=== PATIENT | male | born 1955 | race Caucasian/White ===

== ENCOUNTER 2022-12-27 05:34 | Observation (INO) | payer OTHER ==
[2022-12-27 06:14] LABS: Absolute Lymphocytes (CBC) 1.9 K/uL (0.7-4.9); Lymphocytes % 36.8 % (15.3-44.8); MCV 94.7 fL (80-100); MPV 6.7 fL (7.6-11.3); Platelets 334 thou/uL (152-406); RBC Red Blood Cell Count 4.43 M/uL (4.33-5.43)
[2022-12-27 06:16] LABS: Protime INR 0.94
[2022-12-27 06:35] LABS: Albumin 3.8 g/dL (3.4-5.0); Bilirubin Direct 0.2 mg/dL (0-0.2); Bilirubin Indirect, Calculated 0.3 mg/dL (0.2-0.8); Bilirubin Total 0.5 mg/dL (0.2-1.0); Magnesium 1.8 mg/dL (1.6-2.4); Potassium 3.8 mEq/L (3.5-5.1); Protein, Total 7.9 g/dL (6.4-8.2); Troponin High Sensitivity 7.3 pg/mL (<58.9)
[2022-12-27] MEDS ORDERED: MORPHINE 4 MG/ML SYR ONE (06:39)
[2022-12-27] MEDS ORDERED: ONDANSETRON 4 MG/2 ML VIAL ONE (06:39)
[2022-12-27] MEDS ORDERED: ASPIRIN 81 MG CHEWABLE TABLET ONE (06:39)
[2022-12-27] MEDS ORDERED: ENOXAPARIN 100 MG/ML SYR SQ ONE (06:40)
[2022-12-27 07:06] LABS: SARS-CoV-2 Antigen Rapid Res Negative (Negative)
--- NOTE | 2022-12-27 07:07 | ER ---
Nurse's Notes [facility] [place] Name: Albin Blood Age: 67 yrs Sex: Male : 1955 Arrival Date: 12/27/2022 Time: 05:34 Bed 4 Private MD: Diagnosis: Unstable angina Presentation: 12/27 05:45 Chief complaint: Patient states: UPPER CHEST PAIN SINCE 0130. Coronavirus screen: At bp this time, the client does not indicate any symptoms associated with coronavirus-19. Ebola Screen: No symptoms or risks identified at this time. Initial Sepsis Screen: Does the patient meet any 2 criteria? No. Patient's initial sepsis screen is negative. Does the patient have a suspected source of infection? No. Patient's initial sepsis screen is negative. Risk Assessment: Do you want to hurt yourself or someone else? Patient reports no desire to harm self or others. Onset of symptoms was December 27, 2022 at 01:30. 05:45 Method Of Arrival: Ambulatory bp 05:45 Acuity: TAIWO 3 bp Triage Assessment: 06:00 General: Appears in no apparent distress. uncomfortable, Behavior is calm, cooperative, bp appropriate for age. Pain: Complains of pain in chest. EENT: No deficits noted. Neuro: No deficits noted. Cardiovascular: Reports chest pain. Respiratory: No deficits noted. GI: No signs and/or symptoms were reported involving the gastrointestinal system. : No signs and/or symptoms were reported regarding the genitourinary system. Derm: No deficits noted. Musculoskeletal: No deficits noted. Historical: - Allergies: 06:00 No Known Allergies; bp - PMHx: 06:00 Anemia; GERD; bp - Immunization history:: Adult Immunizations up to date. - Social history:: Smoking status: Patient denies any tobacco usage or history of. - Family history:: not pertinent. Screenin:01 [facility] ED Fall Risk Assessment (Adult) History of falling in the last 3 months, bp including since admission No falls in past 3 months (0 pts). Abuse screen: Denies threats or abuse. Denies injuries from another. Nutritional screening: No deficits noted. Tuberculosis screening: No symptoms or risk factors identified. Assessment: 06:01 Reassessment: SEE TRIAGE NOTE. bp 06:54 Reassessment: Patient appears in no apparent distress at this time. Patient is alert, bp oriented x 3, equal unlabored respirations, skin warm/dry/pink. 07:15 General: Appears in no apparent distress. Behavior is calm, cooperative, appropriate bp for age. Pain: Pain does not radiate. Pain began suddenly. Neuro: No deficits noted. Cardiovascular: Reports chest pain. Respiratory: No deficits noted. GI: No deficits noted. : No deficits noted. EENT: No deficits noted. Derm: No deficits noted. Musculoskeletal: No deficits noted. 09:05 Reassessment: Attempted to call report, no answer at nurses station or receiving nurses bp phone. 09:19 Reassessment: Attempted to call report, ext [phone], [phone] and [phone], no answer. bp 09:45 Reassessment: attempted to call report to Marge, she is in a patients room and will bp call me back. Vital Signs: 05:45 BP 168 / 89; Pulse 57; Resp 16; Temp 98; Pulse Ox 98% ; Weight 117.93 kg; Height 5 ft. bp 11 in. ; 06:54 BP 132 / 97; Pulse 54; Resp 17; Pulse Ox 95% ; bp 07:57 BP 133 / 87; Pulse 49; Resp 16; Pulse Ox 99% ; bp 08:57 BP 144 / 81; Pulse 51; Resp 18; Pulse Ox 97% ; bp 05:45 Body Mass Index 36.26 (117.93 kg, 180.34 cm) bp ED Course: 05:36 Patient arrived in ED. mr 05:51 Scout Menon MD is Attending Physician. sp4 05:57 Duane Mcconnell, PRATIK is Primary Nurse. bp 05:58 Inserted saline lock: 20 gauge in right antecubital area, using aseptic technique. bp Blood collected. 06:00 Triage completed. bp 06:00 Arm band placed on. bp 06:01 Patient maintains SpO2 saturation greater than 95% on room air. bp 06:01 Patient has correct armband on for positive identification. Bed in low position. Call bp light in reach. Side rails up X2. Client placed on continuous cardiac and pulse oximetry monitoring. NIBP monitoring applied. 06:47 XRAY Chest (1 view) In Process Unspecified. EDMS 07:05 Albin Velazquez MD is Hospitalizing Provider. sp4 07:07 Hospitalizing Provider role handed off by Albin Velazquez MD sp4 07:07 Dragan Chung is Hospitalizing Provider. sp4 07:57 Patient admitted, IV remains in place. bp 10:21 No provider procedures requiring assistance completed. bp 10:21 Provided Education on: na. bp Administered Medications: 06:37 Drug: Aspirin PO Chewable Tablet 324 mg Route: PO; bp 06:37 Drug: morphine IVP or IV 4 mg Route: IVP; Infused Over: 4 mins; Site: right antecubital;bp 06:37 Drug: Ondansetron IVP 4 mg Route: IVP; Site: right antecubital; bp 06:37 Drug: Enoxaparin Sub-Q 1 mg/kg Route: Sub-Q; Site: left lower abdomen; bp Medication: 06:01 VIS not applicable for this client. bp Outcome: 07:06 Decision to Hospitalize by Provider. sp4 10:21 Admitted to Tele accompanied by tech, via wheelchair, room 430, with chart, Report bp called to PRATIK Bird 10:21 Condition: stable 10:21 Instructed on the need for admit. 10:28 Patient left the ED. ko1 Signatures: Dispatcher [employer] EDTN JarrodAstrid Brian RN RN bp Shivani Cook RN RN ko1 Scout Menon MD MD sp4
--- NOTE | 2022-12-27 07:07 | EDPHYS ---
Physician Documentation [facility] Name: Albin Blood Age: 67 yrs Sex: Male : 1955 Arrival Date: 12/27/2022 Time: 05:34 Bed 4 Private MD: ED Physician Scout Menon HPI: 12/27 05:51 This 67 yrs old Male presents to ER via Unassigned with complaints of Chest sp4 Pain. 06:08 67-year-old male presents with a cute onset of midsternal chest pain starting at 1:30 sp4 in the morning on awakening. Patient reports moderate midsternal chest pressure with radiation into the neck and into the left arm. Left arm heaviness as well. No previous similar problems. Patient denied any past medical history he reports he takes Tylenol only as needed. 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 In the last few weeks he denied pain on physical exertion. This morning he reported some shortness of breath denies syncope or dizziness. Drinks 5-6 beers a day. Historical: - Allergies: 06:00 No Known Allergies; bp - PMHx: 06:00 Anemia; GERD; bp - Immunization history:: Adult Immunizations up to date. - Social history:: Smoking status: Patient denies any tobacco usage or history of. - Family history:: not pertinent. ROS: 06:10 Constitutional: Negative for fever, chills, and weight loss, Cardiovascular: Positive sp4 chest pain, positive shortness of breath, negative palpitations 06:10 All other systems are negative. Exam: 06:10 Constitutional: This is a well developed, well nourished patient who is awake, alert, sp4 and in no acute distress. Head/Face: Normocephalic, atraumatic. Eyes: Pupils equal round and reactive to light, extra-ocular motions intact. Lids and lashes normal. Conjunctiva and sclera are not injected. Cornea within normal limits. Periorbital areas with no swelling, redness, or edema. ENT: Nares patent. No nasal discharge, no septal abnormalities noted. Tympanic membranes are normal and external auditory canals are clear. Oropharynx with no redness, swelling, or masses, exudates, or evidence of obstruction, uvula midline. Mucous membranes moist. Neck: Trachea midline, no thyromegaly or masses palpated, and no cervical lymphadenopathy. Supple, full range of motion without nuchal rigidity, or vertebral point tenderness. Chest/axilla: Normal chest wall appearance and motion. Nontender with no deformity. No lesions are appreciated. Cardiovascular: Regular rate and rhythm with a normal S1 and S2. No gallops, murmurs, or rubs. Normal PMI, no JVD. No pulse deficits. Respiratory: Lungs have equal breath sounds bilaterally, clear to auscultation and percussion. No rales, rhonchi or wheezes noted. No increased work of breathing, no retractions or nasal flaring. Abdomen/GI: Soft, non-tender, with normal bowel sounds. No distension or tympany. No guarding or rebound. No evidence of tenderness throughout. Back: No spinal tenderness. No costovertebral tenderness. Skin: Warm, dry with normal turgor. Normal color with no rashes, no lesions, and no evidence of cellulitis. MS/ Extremity: Pulses equal, no cyanosis. Neurovascular intact. Full, normal range of motion. Neuro: Awake and alert, GCS 15, oriented to person, place, time, and situation. Cranial nerves II-XII grossly intact. Motor strength 5/5 in all extremities. Sensory grossly intact. Psych: Awake, alert, with orientation to person, place and time. Behavior, mood, and affect are within normal limits 06:10 ECG was reviewed by the Attending Physician. EKG reveals sinus bradycardia at the rate of 55, EKG time 0 548, no ST elevation or depression, no ectopy. Vital Signs: 05:45 BP 168 / 89; Pulse 57; Resp 16; Temp 98; Pulse Ox 98% ; Weight 117.93 kg; Height 5 ft. bp 11 in. ; 06:54 BP 132 / 97; Pulse 54; Resp 17; Pulse Ox 95% ; bp 07:57 BP 133 / 87; Pulse 49; Resp 16; Pulse Ox 99% ; bp 08:57 BP 144 / 81; Pulse 51; Resp 18; Pulse Ox 97% ; bp 05:45 Body Mass Index 36.26 (117.93 kg, 180.34 cm) bp MDM: 05:51 Patient medically screened. sp4 06:11 HEART Score: History: Highly Suspicious (2), ECG: Normal (0), Age: > or = 65 years (2), sp4 Risk Factors: No Risk Factors Known (0), Troponin: < or = 1 x Normal Limit (0), Total Score = 2. The patient was given aspirin in the Emergency Department. Data reviewed: vital signs, nurses notes, old medical records, lab test result(s), EKG, radiologic studies, plain films. ED course: Patient likely warrants admission for rule out ACS. 07:04 ED course: Troponin is negative thus far. Patient was given Lovenox and aspirin. sp4 Patient at this time medically stable for admission for rule out ACS and cardiology consult. . 12/27 05:51 Order name: Basic Metabolic Panel; Complete Time: 06:57 sp4 12/27 05:51 Order name: CBC with Diff; Complete Time: 06:57 sp4 12/27 05:51 Order name: LFT's; Complete Time: 06:57 sp4 12/27 05:51 Order name: Magnesium; Complete Time: 06:57 sp4 12/27 05:51 Order name: NT PRO-BNP; Complete Time: 06:57 sp4 12/27 05:51 Order name: PT-INR; Complete Time: 06:57 sp4 12/27 05:51 Order name: Troponin HS; Complete Time: 06:57 sp4 12/27 06:09 Order name: SARS RAPID; Complete Time: 08:06 sp4 12/27 08:40 Order name: Magnesium EDWI 12/27 08:40 Order name: NT PRO-BNP EDWI 12/27 08:41 Order name: Phosphorus EDWI 12/27 08:41 Order name: T4 Free EDWI 12/27 08:41 Order name: Thyroid Stimulating Hormone EDWI 12/27 08:41 Order name: Urinalysis w/ reflexes EDWI 12/27 08:41 Order name: Basic Metabolic Panel EDWI 12/27 08:41 Order name: Basic Metabolic Panel EDWI 12/27 08:41 Order name: CBC with Automated Diff EDMS 12/27 08:41 Order name: CBC with Automated Diff EDWI 12/27 08:41 Order name: Lipid Profile EDWI 12/27 08:41 Order name: Lipid Profile EDWI 12/27 08:43 Order name: Hemoglobin A1c EDWI 12/27 08:43 Order name: Troponin High Sensitivity EDWI 12/27 08:43 Order name: Troponin High Sensitivity EDWI 12/27 08:43 Order name: Troponin High Sensitivity [facility] 12/27 05:51 Order name: XRAY Chest (1 view); Complete Time: 08:06 sp4 12/27 08:43 Order name: Echo with Doppler EDWI 12/27 05:51 Order name: EKG; Complete Time: 05:52 sp4 12/27 08:40 Order name: CONS Physician Consult EDWI 12/27 08:40 Order name: Heart Healthy; Complete Time: 08:48 EDWI 12/27 05:51 Order name: Cardiac monitoring; Complete Time: 05:53 sp4 12/27 05:51 Order name: EKG - Nurse/Tech; Complete Time: 05:53 sp4 12/27 05:51 Order name: IV Saline Lock; Complete Time: 05:58 sp4 12/27 05:51 Order name: Labs collected and sent; Complete Time: 05:58 sp4 12/27 05:51 Order name: O2 Per Protocol; Complete Time: 05:53 sp4 12/27 05:51 Order name: O2 Sat Monitoring; Complete Time: 05:53 sp4 EC:10 Rate is 55 beats/min. Rhythm is regular, Sinus bradycardia. QRS Preemption is Normal. GA sp4 interval is normal. QRS interval is normal. QT interval is normal. T waves are Normal. No ST changes noted. Clinical impression: No evidence of ischemia. Interpreted by me. Reviewed by me. Administered Medications: 06:37 Drug: Aspirin PO Chewable Tablet 324 mg Route: PO; bp 06:37 Drug: morphine IVP or IV 4 mg Route: IVP; Infused Over: 4 mins; Site: right antecubital;bp 06:37 Drug: Ondansetron IVP 4 mg Route: IVP; Site: right antecubital; bp 06:37 Drug: Enoxaparin Sub-Q 1 mg/kg Route: Sub-Q; Site: left lower abdomen; bp Disposition Summary: 12/27/22 07:06 Hospitalization Ordered Hospitalization Status: Observation sp4 Location: Telemetry/MedSurg (observation) sp4 Condition: Stable sp4 Problem: new sp4 Symptoms: have improved sp4 Bed/Room Type: Standard sp4 Provider: Dragan Chung(12/27/22 07:07) sp4 Room Assignment: 430(12/27/22 08:58) bd Diagnosis - Unstable angina sp4 Forms: - Medication Reconciliation Form sp4 - SBAR form sp4 - Leadership Thank You Letter sp4 Signatures: Dispatcher [employer] Lucila Devi Brian, RN RN bp Potepalov, Sergey, MD MD sp4 Corrections: (The following items were deleted from the chart) 07:07 07:06 Albin Velazquez sp4 sp4 08:58 07:06 sp4 rosanne
--- NOTE | 2022-12-27 07:36 | RAD REPORT ---
EXAM DESCRIPTION: RAD - Chest Single View - 12/27/2022 6:45 am CLINICAL HISTORY: CHEST PAIN COMPARISON: Chest Single View dated 05/16/2016 FINDINGS: Lines: None. Lungs: No evidence of edema or pneumonia. Pleural: No significant pleural effusions or pneumothorax. Cardiac: The heart size is within normal limits. Mediastinum: Within normal limits. Large hiatal hernia. Bones: No acute fractures. Other: None IMPRESSION: No acute cardiopulmonary disease. Large hiatal hernia.
[2022-12-27] MEDS ORDERED: ACETAMINOPHEN 325 MG TABLET PO PRN (08:36)
[2022-12-27] MEDS ORDERED: HYDROCODONE/APAP 5/325 MG TAB PO PRN (08:36)
[2022-12-27] MEDS ORDERED: ONDANSETRON 4 MG/2 ML VIAL IV PRN (08:38)
--- NOTE | 2022-12-27 08:53 | P.HP ---
Certification for Inpatient Patient admitted to: Observation With expected LOS: <2 Midnights Patient will require the following post-hospital care: None Practitioner: I am a practitioner with admitting privileges, knowledge of patient current condition, hospital course, and medical plan of care. Services: Services provided to patient in accordance with Admission requirements found in Title 42 Section 412.3 of the Code of Federal Regulations Patient History Date of Service: 12/27/22 Reason for admission: Chest pain History of Present Illness: Patient is a 67-year-old male with a past medical history significant for anemia, GERD, alcohol abuse who presents with complaint of midsternal chest pain onset this morning. Patient reported that chest pain woke him up from sleep. Patient rated pain as 8/10 in severity and described pain as tightness\pressure in quality. Patient indicated that chest pain radiates to his left upper arm and neck. Patient reported associated signs and symptoms of light headedness and shortness of breath. Patient denies any other signs and symptoms. Symptoms are aggravated or relieved by nothing. Patient decided to present to the hospital due to worsening symptoms. Allergies No Known Allergies Allergy (Unverified 05/16/16 02:50) Home Medications: NK [No Home Meds] 12/27/22 - Past Medical/Surgical History -: GERD -: Alcohol abuse -: Anemia Past Surgical History: Reviewed- Non-Contributory - Family History Family History: Reviewed- Non-Contributory - Social History Smoking Status: Never smoker Alcohol use: Yes CD- Drugs: No Caffeine use: Yes Place of Residence: Home Review of Systems General: Unremarkable Eyes: Unremarkable ENT: Unremarkable Respiratory: Shortness of Breath Cardiovascular: Chest Pain, Light Headedness Gastrointestinal: Unremarkable Genitourinary: Unremarkable Musculoskeletal: Unremarkable Integumentary: Unremarkable Neurological: Unremarkable Lymphatics: Unremarkable Physical Examination - Physical Exam General: Alert, In no apparent distress, Oriented x3, Cooperative HEENT: Atraumatic, PERRLA, Mucous membr. moist/pink, EOMI, Sclerae nonicteric Neck: Supple, 2+ carotid pulse no bruit, No LAD, Without JVD or thyroid abnormality Respiratory: Clear to auscultation bilaterally, Normal air movement Cardiovascular: No edema, Regular rate/rhythm, Normal S1 S2 Capillary refill: <2 Seconds Gastrointestinal: Normal bowel sounds, Soft and benign, No tenderness Musculoskeletal: No clubbing, No tenderness Integumentary: No rashes Neurological: Normal gait, Normal speech, Normal strength at 5/5 x4 extr, Normal tone, Normal affect Lymphatics: No axilla or inguinal lymphadenopathy - Studies Laboratory Data (last 24 hrs) 12/27/22 12/27/22 12/27/22 05:55 05:55 05:55 WBC 5.20 Hgb 14.4 Hct 42.0 Plt Count 334 PT 10.3 INR 0.94 Sodium 138 Potassium 3.8 BUN 14 Creatinine 1.06 Glucose 110 H Magnesium 1.8 Total Bilirubin 0.5 AST 14 L ALT 25 Alkaline Phosphatase 46 Assessment and Plan - Plan --Chest pain. To rule out ACS. Serial troponins negative so far. Echocardiogram pending to assess cardiac structures and function. Cardiology consulted. Telemetry to monitor for any significant arrhythmia. We will await further recommendation from senior automation engineer. --GERD. Patient placed on Protonix. --Alcohol abuse. Patient denies withdrawal symptoms when he does not drink. Alcohol withdrawal assessment protocol. --CKD 2. Baseline functions unknown. We will continue to monitor renal functions. --Elevated blood pressure without a diagnosis of hypertension. Patient placed on amlodipine and hydralazine as needed. --Class II obesity. Likely secondary to excess calories intake. Patient counseled on weight reduction, diet and excise therapy. --DVT prophylaxis with Lovenox subQ. Discharge Plan: Home Plan to discharge in: 48 Hours - Advance Directives Does patient have a Living Will: No Does patient have a Durable POA for Healthcare: No - Code Status/Comfort Care Code Status Assessed: Yes Physician Review: Patient Assessed, Agree with Above Assessment and Plan Critical Care: No
[2022-12-27] MEDS ORDERED: ASPIRIN 81 MG CHEWABLE TABLET PO SCH (09:00)
[2022-12-27] MEDS ORDERED: ENOXAPARIN 40 MG/0.4 ML SQ SCH (09:00)
[2022-12-27] MEDS ORDERED: HYDRALAZINE HCL 20 MG/ML VIAL IV PRN (11:01)
[2022-12-27 11:17] VITALS: BMI 31.4
[2022-12-27 11:59] LABS: Magnesium 1.9 mg/dL (1.6-2.4); Phosphorus 3.1 mg/dL (2.5-4.9); Thyroid Stimulating Hormone 1.26 uIU/mL (0.358-3.740)
[2022-12-27] MEDS ORDERED: AMLODIPINE 5 MG TAB PO SCH (12:00)
[2022-12-27 13:13] LABS: Specific Gravity 1.011 (1.005-1.030); Urine Bacteria None Seen /HPF (<20); Urine Bilirubin NEGATIVE (Negative); Urine Blood Negative (Negative); Urine Clarity Clear (Clear); Urine Color Colorless (Yellow); Urine Glucose NEGATIVE (Negative); Urine Protein NEGATIVE (Negative); Urine RBC <5 /HPF (None Seen); Urine Urobilinogen Normal (Normal)
[2022-12-27] MEDS ORDERED: SODIUM CHLORIDE 0.9% 10ML INJ IV PRN (17:02)
--- NOTE | 2022-12-27 17:05 | EKG ---
Test Date: 2022-12-27 Test Time: 05:48:27 Xm1 Tank Driver: MEASUREMENT RESULTS: Intervals: Rate: 55 [place]: 194 QRSD: 114 QT: 446 QTc: 426 [place]: P: 47 [place]: 194 QRS: 94 T: 67 INTERPRETIVE STATEMENTS: Sinus bradycardia Septal infarct, age undetermined Abnormal ECG Compared to ECG 05/15/2016 23:37:05 Sinus rhythm no longer present Myocardial infarct finding still present Electronically Signed On 12-27-22 17:04:35 CDT by Ismael Yanes
--- NOTE | 2022-12-27 21:14 | CON ---
Date of Consultation: 12/27/2022 Reason For Consultation: Chest pain. History Of Present Illness: 67-year-old male with past medical history of hypertension, presented wi th chest pain woke him up around 3:00 o'clock, he woke up to go to work and he had chest discomfort a nd he feels like it might be indigestion, however, could not tell, so he went to work and he kept hav ing the pain on and off, so he presented to the emergency room. Cardiac enzymes in the emergency dionte m have been totally negative and he is chest pain-free at the present time. Past Medical History: As outlined above in the HPI. Medications: Refer to reconciliation sheet for detailed list. Allergies: NO KNOWN DRUG ALLERGIES. Family History: No premature coronary artery disease or cancer. Social History: Does not smoke or drink. Does not use any drugs. Review of Systems: All systems reviewed and they were negative except what mentioned in HPI. Physical Examination: Vital Signs: Reviewed. Head and Neck: Pupils are equal, reactive to light. Intact eye movements. No JVD. No cervical lym phadenopathy. Neck is supple. Thyroid is not enlarged. Lungs: Clear to auscultation bilaterally. No rhonchi, rales, or crackles. No accessory muscle use. Heart: Regular rate and rhythm. No extra sounds. Abdomen: Soft, nontender. Bowel sounds positive. No organomegaly. No masses or hernia. No rigidi ty or rebound. Extremities: No edema, clubbing, or cyanosis. Intact pulses. Skin: No rash. No nodule. Neurologic: Alert, awake, oriented x3. No acute focal deficits appreciated. Investigations: Cardiac enzymes are negative. Rest of the labs were reviewed. Assessment And Recommendations: 1.Chest pain, some typical features, but it happens at rest. I recommended to do a third set of car diac enzymes. If it is negative, then we will plan for outpatient exercise nuclear stress test. If his enzymes go up, then we will plan for an inpatient evaluation. 2.Hypertension. Blood pressure is controlled. Continue current management. /PATEL Voice ID: [id number] Report ID: [id number]
[2022-12-27] MEDS: PANTOPRAZOLE 40 MG INJ IVP SCH (21:46)
[2022-12-28 01:12] VITALS: O2SAT 93
[2022-12-28 05:19] LABS: Absolute Lymphocytes (CBC) 1.5 K/uL (0.7-4.9); Hematocrit 37.7 % (39.6-49.0); Lymphocytes % 26.3 % (15.3-44.8); MCV 95.4 fL (80-100); MPV 6.8 fL (7.6-11.3); Platelets 296 thou/uL (152-406); RBC Red Blood Cell Count 3.95 M/uL (4.33-5.43)
--- NOTE | 2022-12-28 07:57 | P.DS ---
Admission Date: 12/27/22 Discharge Date: 12/28/22 Disposition: ROUTINE DISCHARGE Discharge Condition: GOOD Reason for Admission: Chest pain Consultations: Cardiology - Dr. Yanes Brief History of Present Illness: 67 yo M, PMH: for anemia, GERD, alcohol abuse Patient presents with complaint of midsternal chest pain onset this morning. Patient reported that chest pain woke him up from sleep. Patient rated pain as 8/10 in severity and described pain as tightness\pressure in quality. Patient indicated that chest pain radiates to his left upper arm and neck. Patient reported associated signs and symptoms of light headedness and shortness of breath. Patient denies any other signs and symptoms. Symptoms are aggravated or relieved by nothing. Patient decided to present to the hospital due to wo rsening symptoms. Hospital Course: Problem List: Chest pain Large hiatal hernia GERD Alcohol dependence CKD 2 Patient presented with chest pain/tightness. D-dimer, EKG and initial troponin were all normal /negative. Chest x-ray was negative for any acute cardiac/pulmonary pathology, and did note appearance of large hiatal hernia. Cardiology was consulted. Troponins were trended and remained stable / negative. Patient had improvement of his symptoms and was deemed stable for discharge home. Dr. Yanes recommended follow up in Cardiology office soon to complete evaluation with outpatient stress testing. Symptoms may be secondary to large hiatal hernia. Follow up with PCP to discuss and possibly start on GERD medication. No new medications on discharge Physical Exam: GEN: Alert, oriented, NAD HEENT: Normal conjunctiva, sclera anicteric CV: Regular rate and rhythm, no edema Pulm: Nonlabored respirations on room air ABD: Soft, nontender, nondistended Vital Signs/Physical Exam: Temp Pulse Resp BP Pulse Ox 97.4 F 78 16 113/71 95 12/28/22 04:00 12/28/22 04:00 12/28/22 04:00 12/28/22 04:00 12/28/22 04:00 Laboratory Data at Discharge: WBC 5.60 thou/uL (4.3-10.9) 12/28/22 04:11 Hgb 12.8 g/dL (13.6-17.9) L D 12/28/22 04:11 Hct 37.7 % (39.6-49.0) L 12/28/22 04:11 Plt Count 296 thou/uL (152-406) 12/28/22 04:11 PT 10.3 SECONDS (9.5-12.5) 12/27/22 05:55 INR 0.94 12/27/22 05:55 Sodium 137 mEq/L (136-145) 12/28/22 04:11 Potassium 4.0 mEq/L (3.5-5.1) 12/28/22 04:11 BUN 11 mg/dL (7-18) 12/28/22 04:11 Creatinine 0.90 mg/dL (0.70-1.30) 12/28/22 04:11 Glucose 94 mg/dL (74-106) 12/28/22 04:11 Phosphorus 3.1 mg/dL (2.5-4.9) 12/27/22 11:12 Magnesium 1.9 mg/dL (1.6-2.4) 12/27/22 11:12 Total Bilirubin 0.5 mg/dL (0.2-1.0) 12/27/22 05:55 AST 14 U/L (15-37) L 12/27/22 05:55 ALT 25 U/L (16-61) 12/27/22 05:55 Alkaline Phosphatase 46 U/L (45-117) 12/27/22 05:55 Triglycerides 220 mg/dL (<150) H 12/28/22 04:11 Cholesterol 163 mg/dL (<200) 12/28/22 04:11 HDL Cholesterol 56 mg/dL (40-60) 12/28/22 04:11 Cholesterol/HDL Ratio 2.91 12/28/22 04:11 Home Medications: NK [No Home Meds] 12/27/22 Physician Discharge Instructions: Patient presented with chest pain/tightness. D-dimer, EKG and initial troponin were all normal /negative. Chest x-ray was negative for any acute cardiac/pulmonary pathology, and did note appearance of large hiatal hernia. Cardiology was consulted. Troponins were trended and remained stable / negative. Patient had improvement of his symptoms and was deemed stable for discharge home. Dr. Yanes recommended follow up in Cardiology office soon to complete evaluation with outpatient stress testing. Symptoms may be secondary to large hiatal hernia. Follow up with PCP to discuss and possibly restart on GERD medication (Pepcid vs Prilosec). No new medications on discharge Followup: NONE,NONE [Primary Care Provider] - Time spent managing pt's care (in minutes): 45
[2022-12-28 08:48] VITALS: BP 126/87; TEMP 97.3
[2022-12-28] MEDS: PANTOPRAZOLE 40 MG INJ IVP SCH (08:58)
[2022-12-28] MEDS ORDERED: ASPIRIN 81 MG CHEWABLE TABLET PO SCH (09:00)
[2022-12-28] MEDS ORDERED: ENOXAPARIN 40 MG/0.4 ML SQ SCH (09:00)
--- NOTE | 2022-12-29 09:20 | ECHO ---
HEIGHT: 5 ft 11 in WEIGHT: 224 lb 14.4 oz DATE OF STUDY: 12/28/[address]: Mary Ann Johnson 2-DIMENSIONAL: YES M.MODE: YES DOPPLER: YES COLOR FLOW: YES TDS: PORTABLE: YES DEFINITY: BUBBLE STUDY: DIAGNOSIS: CHEST PAIN CARDIAC HISTORY: CATHERIZATION: SURGERY: PROSTHETIC VALVE: PACEMAKER: MEASUREMENTS (cm) DIASTOLIC (NORMALS) SYSTOLIC (NORMALS) IVSd 1.1 (0.6-1.2) LA Diam 3.0 (1.9-4.0) LVEF 74% LVIDd 4.9 (3.5-5.7) LVIDs 2.8 (2.0-3.5) %FS 43% LVPWd 1.2 (0.6-1.2) Ao Diam 3.0 (2.0-3.7) 2 DIMENSIONAL ASSESSMENT: RIGHT ATRIUM: NORMAL LEFT ATRIUM: NORMAL RIGHT VENTRICLE: NORMAL LEFT VENTRICLE: NORMAL TRICUSPID VALVE: MILD TRICUSPID REGURGITATION MITRAL VALVE: MILD MITRAL REGURGITATION PULMONIC VALVE: NORMAL AORTIC VALVE: MILD AORTIC INSUFFICIENCY PERICARDIAL EFFUSION: NONE AORTIC ROOT: NORMAL LEFT VENTRICULAR WALL MOTION: NORMAL DOPPLER/COLOR FLOW: SEE BELOW COMMENTS: 1. NORMAL LEFT VENTRICULAR EJECTION FRACTION 60-65%% WITH NORMAL WALL MOTION 2. MILD MITRAL REGURGITATION 3. MILD AORTIC INSUFFICIENCY 4. MILD TRICUSPID REGURGITATION TECHNOLOGIST: EARLINE ALVES
== END 2022-12-28 10:02 | disposition home or self-care (01) ==
LOC: ER 05:34 → ERHOLD 08:35 → 4TH 09:10
PROVIDERS: ADMIT Internal Medicine; ATTEND Hospitalist
DX: R07.9 Chest pain, unspecified (principal); D64.9 Anemia, unspecified; K21.9 Gastro-esophageal reflux disease without esophagitis; F10.10 Alcohol abuse, uncomplicated; R06.02 Shortness of breath; N18.2 Chronic kidney disease, stage 2 (mild); R03.0 Elevated blood-pressure reading, without diagnosis of hypertension; E66.9 Obesity, unspecified; K44.9 Diaphragmatic hernia without obstruction or gangrene; Z68.31 Body mass index [BMI] 31.0-31.9, adult; Z20.822 Contact with and (suspected) exposure to COVID-19
CPT/HCPCS: 93005; 93306; 85025 ×2; 81001; 80048 ×2; 36415; 83735 ×2; 84100; 85610; 80061; 85379; 80076; 84443; 83036; 84484 ×3; 84439; 83880 ×2; 71045; 96375; 96372; 96374; 99285; 87811; J1650 ×2; C9113 ×2; J2405; G0378 ×3